=== PATIENT | female | born 1995 | race Two or more races ===

== ENCOUNTER 2022-01-29 10:26 | Emergency (ER) | payer OTHER ==
[~2022-01-29] VITALS: Ht 172.7 cm; Wt 95.3 kg
== END 2022-01-29 13:30 | disposition home or self-care (01) ==
LOC: ER 10:26
DX: U07.1 COVID-19 (principal); B34.9 Viral infection, unspecified

== ENCOUNTER 2023-11-05 18:20 | Emergency (ER) | payer OTHER ==
[~2023-11-05] VITALS: Ht 172.7 cm; Wt 104.3 kg
[2023-11-05 21:11] LABS: HEMATOCRIT 39.3 % (36.0-45.00); HEMOGLOBIN 13.5 g/dL (12.0-15.00); MEAN CELL VOLUME 79.6 fL (80.00-100.00); MEAN CORPUSCULAR HEMOGLOBIN 27.3 pg (27.00-32.0); MEAN CORPUSCULAR HGB CONC 34.3 g/dl (32.0-36.0); PLATELET COUNT 274 K/uL (150-450); RED BLOOD COUNT 4.93 M/uL (4.00-6.00); RED CELL DISTRIBUTION WIDTH 13.4 % (11.5-14.5)
[2023-11-05 21:13] LABS: URINE APPEARANCE Cloudy; URINE BACTERIA 5568.8 uL (0.0-1933); URINE BILIRRUBIN Negative (NEGATIVE); URINE COLOR Yellow; URINE GLUCOSE Negative (NEGATIVE); URINE LEUKOCYTE Moderate; URINE NITRATE Negative; URINE PROTEIN Negative (NEGATIVE); URINE RBC 21.4 uL (0.0-20.8); URINE WBC 222.6 uL (0.0-23.2)
[2023-11-05 21:15] LABS: URINE BLOOD Trace
[2023-11-05 21:33] LABS: CALCIUM 9.6 mg/dL (8.5-10.1); CREATININE SERUM 0.93 mg/dL (0.55-1.02); GFR 72.87; POTASSIUM 3.75 mEq/L (3.5-5.1)
== END 2023-11-05 22:37 | disposition home or self-care (01) ==
LOC: ER 18:22
PROVIDERS: General Practice
DX: N39.0 Urinary tract infection, site not specified (principal); R50.9 Fever, unspecified; Z20.822 Contact with and (suspected) exposure to COVID-19
CPT/HCPCS: 36415; 96372; 99282; J0696; J1885; J2405

== ENCOUNTER 2023-11-08 10:30 | Emergency (ER) | payer OTHER ==
[~2023-11-08] VITALS: Ht 170.2 cm; Wt 104.3 kg
[2023-11-08 13:08] LABS: HEMATOCRIT 43.5 % (36.0-45.00); HEMOGLOBIN 14.6 g/dL (12.0-15.00); MEAN CELL VOLUME 80.5 fL (80.00-100.00); MEAN CORPUSCULAR HEMOGLOBIN 27.1 pg (27.00-32.0); MEAN CORPUSCULAR HGB CONC 33.7 g/dl (32.0-36.0); PLATELET COUNT 186 K/uL (150-450); RED CELL DISTRIBUTION WIDTH 13.4 % (11.5-14.5)
[2023-11-08 13:24] LABS: CALCIUM 9.2 mg/dL (8.5-10.1); CREATININE SERUM 0.83 mg/dL (0.55-1.02); GFR 83.1; POTASSIUM 3.31 mEq/L (3.5-5.1)
[2023-11-08 13:32] LABS: PH,URINE 5.5 (5.0-8.0); URINE APPEARANCE Clear; URINE BILIRRUBIN Negative (NEGATIVE); URINE BLOOD Trace; URINE COLOR Dark Yellow; URINE GLUCOSE Negative (NEGATIVE); URINE LEUKOCYTE Trace; URINE NITRATE Negative; URINE PROTEIN 30 (NEGATIVE)
[2023-11-08 13:35] LABS: URINE BACTERIA 26.4 uL (0.0-1933); URINE EPITHELIAL CELLS 31.3 uL (0.0-38.8); URINE RBC 21.9 uL (0.0-20.8); URINE WBC 23.4 uL (0.0-23.2)
== END 2023-11-08 17:00 | disposition home or self-care (01) ==
LOC: ER 10:32
PROVIDERS: Emergency Medicine
DX: R11.10 Vomiting, unspecified (principal)

== ENCOUNTER 2024-04-26 11:56 | Emergency (ER) | payer OTHER ==
[~2024-04-26] VITALS: Ht 170.2 cm; Wt 99.3 kg
[~2024-04-26 11:56] MED LIST: METOCLOPRAMIDE10 MG PO; NIGHTTIME SLEEP50 MG PO; ONDANSETRON ODT8 MG PO; PRENA1 TRUE CO1 EACH PO
[2024-04-26 13:43] LABS: HEMATOCRIT 35.4 % (36.0-45.00); MEAN CORPUSCULAR HEMOGLOBIN 27.5 pg (27.00-32.0); PLATELET COUNT 267 K/uL (150-450); RED BLOOD COUNT 4.37 M/uL (4.00-6.00); RED CELL DISTRIBUTION WIDTH 14.1 % (11.5-14.5)
[2024-04-26 13:59] LABS: PARTIAL THROMBOPLASTIN TIME 26.2 SECONDS (22.0-34.0); PROTHROMBIN TIME 10.5 SECONDS (9.0-11.5)
[2024-04-26 14:17] LABS: PH,URINE 5.5 (5.0-8.0); URINE APPEARANCE Clear; URINE BILIRRUBIN Small (NEGATIVE); URINE BLOOD Moderate; URINE COLOR Dark Yellow; URINE GLUCOSE Negative (NEGATIVE); URINE LEUKOCYTE Trace; URINE NITRATE Negative; URINE PROTEIN Trace (NEGATIVE)
[2024-04-26 14:18] LABS: CALCIUM 9.8 mg/dL (8.5-10.1); CREATININE SERUM 0.74 mg/dL (0.55-1.02); GFR 94.86; POTASSIUM 3.16 mEq/L (3.5-5.1)
[2024-04-26 14:21] LABS: URINE BACTERIA 4123.7 uL (0.0-1933); URINE EPITHELIAL CELLS 22.2 uL (0.0-38.8); URINE RBC 13.5 uL (0.0-20.8); URINE WBC 51.1 uL (0.0-23.2)
[2024-04-26 14:43] LABS: URINE MUCUS HEAVY
== END 2024-04-26 15:50 | disposition home or self-care (01) ==
LOC: ER 11:57
PROVIDERS: General Practice
DX: O20.9 Hemorrhage in early pregnancy, unspecified (principal); Z3A.15 15 weeks gestation of pregnancy

== ENCOUNTER 2024-08-18 10:34 | Outpatient (CLI) | payer OTHER ==
[~2024-08-18] VITALS: Ht 172.7 cm; Wt 99.8 kg
[2024-08-18 10:17] VITALS: BP 102/68
[2024-08-18] MEDS ORDERED: ACETAMINOPHEN 500 MG GEL..CAP PO PRN (10:45)
[2024-08-18] MEDS ORDERED: ONDANSETRON HCL 2 MG/ML VIAL IV PRN (10:45)
[2024-08-18] MEDS ORDERED: RINGERS SOLUTION,LACTATED 1,000 ML IV SCH (10:45)
[2024-08-18 11:13] LABS: HEMATOCRIT 31.9 % (36.0-45.00); MEAN CELL VOLUME 78.9 fL (80.00-100.00); MEAN CORPUSCULAR HEMOGLOBIN 27.3 pg (27.00-32.0); MEAN CORPUSCULAR HGB CONC 34.6 g/dl (32.0-36.0); PLATELET COUNT 257 K/uL (150-450); RED BLOOD COUNT 4.05 M/uL (4.00-6.00); RED CELL DISTRIBUTION WIDTH 13.6 % (11.5-14.5)
[2024-08-18 11:37] LABS: INR 1.01; PARTIAL THROMBOPLASTIN TIME 27.4 SECONDS (22.0-34.0)
[2024-08-18 12:17] LABS: ALBUMIN 2.8 gm/dL (3.4-5.0); BILIRUBIN TOTAL 0.64 mg/dL (0.3-1.2); CALCIUM 8.8 mg/dL (8.5-10.1); CREATININE SERUM 0.63 mg/dL (0.55-1.02); GFR 113.35; GLOBULINA 3.7 G/DL (2.4-3.5); POTASSIUM 3.54 mEq/L (3.5-5.1); TOTAL PROTEIN 6.5 gm/dL (6.4-8.2)
[2024-08-18] MEDS ORDERED: METOCLOPRAMIDE HCL 10 MG in DEXTROSE 5 % IN WATER 50 ML IV NR (16:00)
[2024-08-18 16:04] VITALS: BP 96/62
[2024-08-18] MEDS ORDERED: FAMOTIDINE/PF 20 MG in 0.9 % SODIUM CHLORIDE 8 ML IV PUSH SCH (17:00)
[2024-08-18] MEDS ORDERED: MULTIVIT INFUSN,ADULT 4,VIT K 10 ML VIAL IV SCH (17:00)
[2024-08-19 00:29] VITALS: BP 117/68; O2SAT 99
[2024-08-19 06:44] VITALS: BP 105/79; O2SAT 97
[2024-08-19 11:59] VITALS: BP 102/73; BP 111/71; O2SAT 99
== END 2024-08-19 13:09 | disposition home or self-care (01) ==
LOC: OBS/DEL 10:34
PROVIDERS: ATTEND Obstetrics & Gynecology
DX: O26.893 Other specified pregnancy related conditions, third trimester (principal); Z3A.31 31 weeks gestation of pregnancy; R11.2 Nausea with vomiting, unspecified

== ENCOUNTER 2024-10-12 23:22 | Inpatient (IN) | payer OTHER ==
[~2024-10-12] VITALS: Ht 172.7 cm; Wt 100.7 kg
[2024-10-12 23:10] VITALS: BP 123/82
[2024-10-12] MEDS ORDERED: FAMOTIDINE/PF 20 MG/2 ML VIAL ONE (23:27)
[2024-10-12] MEDS ORDERED: MORPHINE SULFATE 4 MG/ML CARTRIDGE IV PRN (23:30)
[2024-10-12] MEDS ORDERED: FAMOTIDINE/PF 20 MG in 0.9 % SODIUM CHLORIDE 100 ML IV SCH (23:30)
[2024-10-12] MEDS ORDERED: RINGERS SOLUTION,LACTATED 1,000 ML IV SCH (23:30)
[2024-10-12 23:45] VITALS: BP 130/91
[2024-10-12] MEDS ORDERED: ERYTHROMYCIN BASE OPHT 1GM EACH TUBE OP ONE (23:48)
[2024-10-12] MEDS ORDERED: OXYTOCIN 20 UNITS/1000ML RL PIGGYBAG IV ONE (23:49)
[2024-10-12] MEDS ORDERED: CHLORHEXIDINE GLUCONATE 120 ML BOTTLE TOP ONE (23:49)
[2024-10-12] MEDS ORDERED: LIDOCAINE HCL 1% 10ML VIAL ONE (23:49)
[2024-10-12] MEDS ORDERED: AMPICILLIN SODIUM 2,000 MG VIAL ONE (23:49)
[2024-10-13] VITALS (8 sets, daily range): BP systolic 110–129; BP diastolic 71–85
[2024-10-13] MEDS ORDERED: PEPCID AC20 MG PO (00:09)
[2024-10-13] MEDS ORDERED: AMPICILLIN SODIUM 2,000 MG VIAL IV ONE (00:15)
[2024-10-13 00:27] LABS: INR 0.95; PARTIAL THROMBOPLASTIN TIME 24.5 SECONDS (22.0-34.0); PROTHROMBIN TIME 10.4 SECONDS (9.0-11.5)
[2024-10-13 00:39] LABS: ALBUMIN 2.7 gm/dL (3.4-5.0); BILIRUBIN TOTAL 0.38 mg/dL (0.3-1.2); CREATININE SERUM 0.69 mg/dL (0.55-1.02); GFR 102.06; GLOBULINA 3.8 G/DL (2.4-3.5); TOTAL PROTEIN 6.5 gm/dL (6.4-8.2)
[2024-10-13 00:40] LABS: HEMATOCRIT 32.9 % (36.0-45.00); MEAN CELL VOLUME 75.9 fL (80.00-100.00); MEAN CORPUSCULAR HEMOGLOBIN 25.3 pg (27.00-32.0); MEAN CORPUSCULAR HGB CONC 33.3 g/dl (32.0-36.0); PLATELET COUNT 314 K/uL (150-450); RED BLOOD COUNT 4.34 M/uL (4.00-6.00); RED CELL DISTRIBUTION WIDTH 14.6 % (11.5-14.5)
[2024-10-13] MEDS ORDERED: CHLORHEXIDINE GLUCONATE 120 ML BOTTLE TOP SCH (03:30)
[2024-10-13] MEDS ORDERED: OXYTOCIN 1,000 ML IV SCH (03:30)
[2024-10-13] MEDS ORDERED: IBUprofen 400 MG TABLET PO PRN (03:30)
[2024-10-13] MEDS ORDERED: AMPICILLIN SODIUM 1,000 MG VIAL IV SCH (04:00)
[2024-10-13] MEDS ORDERED: LIDOCAINE HCL 1% 10ML VIAL IJ ONE (04:00)
[2024-10-13] MEDS ORDERED: ERYTHROMYCIN BASE OPHT 1GM EACH TUBE OP ONE (04:00)
[2024-10-13] MEDS ORDERED: FAMOTIDINE/PF 20 MG in 0.9 % SODIUM CHLORIDE 100 ML IV PRN (04:01)
[2024-10-14 01:23] VITALS: BP 95/60
[2024-10-14 05:15] VITALS: BP 116/78
[2024-10-14 06:54] LABS: HEMATOCRIT 30.4 % (36.0-45.00); MEAN CELL VOLUME 76.1 fL (80.00-100.00); MEAN CORPUSCULAR HGB CONC 32.8 g/dl (32.0-36.0); PLATELET COUNT 296 K/uL (150-450); RED BLOOD COUNT 3.99 M/uL (4.00-6.00); RED CELL DISTRIBUTION WIDTH 14.6 % (11.5-14.5)
[2024-10-14 08:11] VITALS: BP 128/75
[2024-10-14] MEDS ORDERED: FAMOtidine 20 MG TABLET PO PRN (13:45)
[2024-10-14 15:37] VITALS: BP 121/85
[2024-10-15 00:33] VITALS: BP 118/83
[2024-10-15 08:22] VITALS: BP 113/80
== END 2024-10-15 13:04 | disposition home or self-care (01) | DRG 807 ==
LOC: LDR 23:22 → OB/GYN 23:22
PROVIDERS: ADMIT Obstetrics & Gynecology; ATTEND Obstetrics & Gynecology
PROC: 4A1HXCZ Monitoring of Products of Conception, Cardiac Rate, External Approach (ICD-10-PCS; 2024-10-12)
PROC: 10E0XZZ Delivery of Products of Conception, External Approach (ICD-10-PCS; principal; 2024-10-13)
PROC: 0KQM0ZZ Repair Perineum Muscle, Open Approach (ICD-10-PCS; 2024-10-13)
DX: O70.1 Second degree perineal laceration during delivery (principal); Z37.0 Single live birth; Z3A.38 38 weeks gestation of pregnancy; Z20.822 Contact with and (suspected) exposure to COVID-19

== ENCOUNTER 2024-11-16 15:57 | Inpatient (IN) | payer OTHER ==
[~2024-11-16] VITALS: Ht 172.7 cm; Wt 89.8 kg
[~2024-11-16 15:57] MED LIST changes: +PEPCID AC20 MG PO
--- NOTE | 2024-11-16 16:24 | NUR ---
PACIENTE REFIERE DOLOR EPIGASTRICO EN AMBOS CUADRANTE SUPERIORES DESDE EL SABADO. PACIENE CON LABORATORIOS DE AMYLASE >[id number] Y LIPASE >1300, AST 490, ALT 438 Y BILI 8.5.
--- NOTE | 2024-11-16 19:31 | NUR ---
PACIENTE ALERTA Y ORIENTADA X3. SE EDUCA A PACIENTE SOBRE PROCESO DE AIDA DE MUESTRAS, REFIERE ENTENDER. SE EJECUTAN ORDENES BAJO MEDIDAS ASEPTICAS.
[2024-11-16 19:33] LABS: HEMATOCRIT 35.6 % (36.0-45.00); HEMOGLOBIN 12.1 g/dL (12.0-15.00); MEAN CELL VOLUME 75.1 fL (80.00-100.00); MEAN CORPUSCULAR HEMOGLOBIN 25.5 pg (27.00-32.0); MEAN CORPUSCULAR HGB CONC 33.9 g/dl (32.0-36.0); PLATELET COUNT 266 K/uL (150-450); RED BLOOD COUNT 4.74 M/uL (4.00-6.00); RED CELL DISTRIBUTION WIDTH 16.7 % (11.5-14.5)
[2024-11-16 19:46] LABS: INR 1.05; PARTIAL THROMBOPLASTIN TIME 20.6 SECONDS (22.0-34.0); PROTHROMBIN TIME 11.4 SECONDS (9.0-11.5)
[2024-11-16 19:57] LABS: ALBUMIN 3.6 gm/dL (3.4-5.0); ALKALINE PHOSPHATASE 392 U/L (50-136); ALT/SGPT 402 U/L (12-78); ANION GAP 14 (10.0-20.0); AST/SGOT 352 U/L (15-37); BLOOD UREA NITROGEN 11 mg/dL (7-18); BUN CREA RATIO 14 (7.0-25.0); CALCIUM 9.4 mg/dL (8.5-10.1); CARBON DIOXIDE 24 mEq/L (21-32); CHLORIDE 104 mmol/L (98-107); CREATININE SERUM 0.79 mg/dL (0.55-1.02); GLOBULINA 3.5 G/DL (2.4-3.5); GLUCOSE FASTING 68 mg/dL (65-100); OSMOLALITY SERUM 275 MOSM/KG (275-295); POTASSIUM 3.29 mEq/L (3.5-5.1); SODIUM 139 mmol/L (136-145); TOTAL PROTEIN 7.1 gm/dL (6.4-8.2)
[2024-11-16 20:05] LABS: HCG QUANTITATIVE < 1 mUI/mL (1-3)
[2024-11-16 20:06] LABS: LIPASE 2156 U/L (13-75)
[2024-11-16] MEDS ORDERED: 0.9 % SODIUM CHLORIDE 1,000 ML IV STA (20:26)
[2024-11-16] MEDS ORDERED: MEPERIDINE HCL/PF 50 MG/ML VIAL IM ONE (20:30)
[2024-11-16] MEDS ORDERED: FAMOtidine 10 MG/ML (4ML VIAL) IV ONE (20:30)
[2024-11-16] MEDS ORDERED: PANTOPRAZOLE SODIUM 40 MG/VIAL VIAL IV ONE (20:30)
[2024-11-16] MEDS ORDERED: PIPERACILLIN/TAZOBACTAM SODIUM 3.375 GM VIAL IV ONE ×2 (20:30→21:53)
[2024-11-16 20:49] LABS: AMYLASE 694 U/L (25-115)
[2024-11-16] MEDS ORDERED: METOCLOPRAMIDE HCL 5 MG/ML VIAL IV ONE (21:15)
[2024-11-16] MEDS ORDERED: METOCLOPRAMIDE HCL 5 MG/ML VIAL ONE (21:52)
--- NOTE | 2024-11-16 21:52 | NUR ---
PACIENTE ALERTA Y ORIENTADA X3. SE EDUCA A PACIENTE SOBRE PROCESO DE CANALIZACION Y ADMINISTRACION DE MEDICAMENTOS, REFIERE ENTENDER. SE EJECUTAN ORDENES BAJO MEDIDAS ASEPTICAS.
[2024-11-16] MEDS ORDERED: FAMOTIDINE/PF 20 MG/2 ML VIAL ONE (21:53)
[2024-11-16] MEDS ORDERED: 0.9 % SODIUM CHLORIDE 1,000 ML IV SCH (23:00)
[2024-11-16] MEDS ORDERED: MORPHINE SULFATE 2 MG/ML SYRINGE IV PRN (23:00)
[2024-11-16] MEDS ORDERED: ONDANSETRON HCL 4 MG in 0.9 % SODIUM CHLORIDE 50 ML IV PRN (23:15)
[2024-11-16] MEDS ORDERED: HYOSCYAMINE SULFATE 0.125 MG TAB.SUBL PO ONE (23:15)
[2024-11-17] MEDS ORDERED: PIPERACILLIN/TAZOBACTAM SODIUM 3.375 GM in DEXTROSE 5 % IN WATER 100 ML IV SCH
[2024-11-17 05:10] VITALS: BP 110/14; O2SAT 99
[2024-11-17 08:00] VITALS: BP 111/80; O2SAT 100
[2024-11-17 09:00] LABS: ALBUMIN 3.1 gm/dL (3.4-5.0); BILIRUBIN TOTAL 2.74 mg/dL (0.3-1.2); BILIRUBIN,CONJUGATED 1.69 mg/dL (0.0-0.2); BILIRUBIN,UNCONJUGATED 1.05 mg/dL (0.0-0.6); TOTAL PROTEIN 6.3 gm/dL (6.4-8.2)
[2024-11-17] MEDS ORDERED: FAMOTIDINE/PF 20 MG in 0.9 % SODIUM CHLORIDE 8 ML IV PUSH SCH (09:00)
[2024-11-17 16:00] VITALS: BP 107/76; O2SAT 100
[2024-11-18 01:34] VITALS: BP 111/71; O2SAT 98
[2024-11-18 08:41] VITALS: BP 100/72; O2SAT 98
[2024-11-18 09:52] LABS: HEMATOCRIT 40.3 % (36.0-45.00); HEMOGLOBIN 13.4 g/dL (12.0-15.00); MEAN CELL VOLUME 76.9 fL (80.00-100.00); MEAN CORPUSCULAR HEMOGLOBIN 25.5 pg (27.00-32.0); MEAN CORPUSCULAR HGB CONC 33.1 g/dl (32.0-36.0); PLATELET COUNT 340 K/uL (150-450); RED BLOOD COUNT 5.25 M/uL (4.00-6.00); RED CELL DISTRIBUTION WIDTH 16.8 % (11.5-14.5)
[2024-11-18 10:58] LABS: ALBUMIN 4.1 gm/dL (3.4-5.0); BILIRUBIN TOTAL 2.27 mg/dL (0.3-1.2); BILIRUBIN,CONJUGATED 1.28 mg/dL (0.0-0.2); BILIRUBIN,UNCONJUGATED 0.99 mg/dL (0.0-0.6); CALCIUM 9.9 mg/dL (8.5-10.1); CREATININE SERUM 0.82 mg/dL (0.55-1.02); GFR 83.62; GLOBULINA 4.3 G/DL (2.4-3.5); MAGNESIUM 1.9 mg/dL (1.8-2.4); PHOSPHOROUS 4.1 mg/dL (2.5-4.9); POTASSIUM 4.2 mEq/L (3.5-5.1); TOTAL PROTEIN 8.4 gm/dL (6.4-8.2)
[2024-11-18 11:09] LABS: C-REACTIVE PROTEIN 1.7 MG/DL (0.00-0.29)
[2024-11-18] MEDS ORDERED: DEXTROSE 5 % AND 0.9 % NACL 1,000 ML IV SCH (11:30)
[2024-11-18] MEDS ORDERED: LACTOBACILLUS ACIDOPHILUS 1 CAP CAP PO SCH (13:00)
[2024-11-18 16:00] VITALS: BP 108/63; O2SAT 98
[2024-11-19] VITALS: BP 116/80; O2SAT 100
[2024-11-19 07:06] LABS: HEMOGLOBIN 10.9 g/dL (12.0-15.00); MEAN CELL VOLUME 75.7 fL (80.00-100.00); PLATELET COUNT 299 K/uL (150-450); RED BLOOD COUNT 4.36 M/uL (4.00-6.00); RED CELL DISTRIBUTION WIDTH 16.5 % (11.5-14.5)
[2024-11-19 07:36] LABS: BILIRUBIN TOTAL 1.52 mg/dL (0.3-1.2); CALCIUM 8.9 mg/dL (8.5-10.1); CREATININE SERUM 0.76 mg/dL (0.55-1.02); GFR 91.29; GLOBULINA 3.2 G/DL (2.4-3.5); POTASSIUM 3.8 mEq/L (3.5-5.1); TOTAL PROTEIN 6.2 gm/dL (6.4-8.2)
[2024-11-19] MEDS ORDERED: PEPCID AC20 MG PO (12:32)
[2024-11-19] MEDS ORDERED: ZOFRAN8 MG PO (12:32)
== END 2024-11-19 13:52 | disposition home or self-care (01) | DRG 446 ==
LOC: ER 16:00 → SURG 23:01
PROVIDERS: Emergency Medicine; General Practice; Internal Medicine Infectious Disease; ADMIT Student in an Organized Health Care Education/Training Program; ATTEND Student in an Organized Health Care Education/Training Program
PROC: BW40ZZZ Ultrasonography of Abdomen (ICD-10-PCS; principal; 2024-11-16)
PROC: BF37ZZZ Magnetic Resonance Imaging (MRI) of Pancreas (ICD-10-PCS; 2024-11-16)
DX: K80.20 Calculus of gallbladder without cholecystitis without obstruction (principal); E87.6 Hypokalemia

== ENCOUNTER 2025-01-07 10:43 | Outpatient (CLI) | payer OTHER ==
[~2025-01-07 10:43] MED LIST changes: +PRENATAL; +ZOFRAN8 MG PO
== END 2025-01-07 10:47 | disposition home or self-care (01) ==
LOC: SONOGRAMA 10:43
PROVIDERS: ATTEND Student in an Organized Health Care Education/Training Program
DX: K80.00 Calculus of gallbladder with acute cholecystitis without obstruction (principal)

== ENCOUNTER 2025-01-11 06:09 | Day surgery (SDC) | payer OTHER ==
[2025-01-07 10:39] LABS: HEMATOCRIT 38.8 % (36.0-45.00); HEMOGLOBIN 12.7 g/dL (12.0-15.00); MEAN CELL VOLUME 77.2 fL (80.00-100.00); MEAN CORPUSCULAR HEMOGLOBIN 25.2 pg (27.00-32.0); MEAN CORPUSCULAR HGB CONC 32.7 g/dl (32.0-36.0); PLATELET COUNT 305 K/uL (150-450); RED BLOOD COUNT 5.03 M/uL (4.00-6.00); RED CELL DISTRIBUTION WIDTH 15.8 % (11.5-14.5)
[2025-01-07 10:43] LABS: PH,URINE 5.5 (5.0-8.0); URINE APPEARANCE Clear; URINE BILIRRUBIN Negative (NEGATIVE); URINE BLOOD Negative; URINE COLOR Yellow; URINE GLUCOSE Negative (NEGATIVE); URINE KETONE Negative (NEGATIVE); URINE LEUKOCYTE Moderate; URINE NITRATE Negative; URINE PROTEIN Negative (NEGATIVE); URINE UROBILINOGEN 0.2 E.U./dl
[2025-01-07 10:47] LABS: URINE EPITHELIAL CELLS 77.3 uL (0.0-38.8); URINE RBC 2.9 uL (0.0-20.8); URINE WBC 96.2 uL (0.0-23.2)
[2025-01-07 10:59] LABS: INR 1.03; PARTIAL THROMBOPLASTIN TIME 27.2 SECONDS (22.0-34.0); PROTHROMBIN TIME 11.2 SECONDS (9.0-11.5)
[2025-01-07 11:27] LABS: URINE CAST 0.14 uL (0.0-1.40)
[2025-01-07 11:36] LABS: ALBUMIN 3.9 gm/dL (3.4-5.0); BILIRUBIN TOTAL 0.49 mg/dL (0.3-1.2); CALCIUM 9.6 mg/dL (8.5-10.1); CREATININE SERUM 0.8 mg/dL (0.55-1.02); GFR 86.04; GLOBULINA 3.6 G/DL (2.4-3.5); TOTAL PROTEIN 7.5 gm/dL (6.4-8.2)
[2025-01-11] MEDS ORDERED: HEPARIN SODIUM,PORCINE 5,000 UNITS/ML VIAL ONE (09:02)
[2025-01-11] MEDS ORDERED: CEFAZOLIN SODIUM 1,000 MG VIAL ONE (09:03)
[2025-01-11] MEDS ORDERED: BUPIVACAINE HCL 0.5% 50ML VIAL ONE (10:31)
[2025-01-11] MEDS ORDERED: SUGAMMADEX SODIUM 200 MG/2 ML VIAL IV ONE ×2 (11:47→12:00)
[2025-01-11] MEDS ORDERED: MORPHINE SULFATE 4 MG/ML VIAL IV ONE ×2 (12:30→13:00)
== END 2025-01-11 15:00 | disposition home or self-care (01) ==
LOC: CIR.AMB 06:09
PROVIDERS: ATTEND Student in an Organized Health Care Education/Training Program
DX: K80.20 Calculus of gallbladder without cholecystitis without obstruction (principal); G47.33 Obstructive sleep apnea (adult) (pediatric)